=== PATIENT | female | born 2000 | race Native Hawaiian/Other Pacific Islander ===

== ENCOUNTER 2022-05-26 13:17 | Emergency (ER) | payer BC, SELFPAY ==
[2022-05-26 13:46] VITALS: BP 91/60; PULSE 55; RESP 14; TEMP 37; O2SAT 98; BMI 20.6
--- NOTE | 2022-05-26 15:59 | ED.EYEPROB ---
HPI - Eye Problem General Time Seen by Provider: 16:10 Date Seen: 05/26/22 Chief complaint: Eye Problems Stated complaint: Numb right eye/face Time Seen by Provider: 05/26/22 15:50 History of Present Illness HPI Narrative: 21-year-old female presents with pain swelling of her right eyelid started about 3 days ago. He was more concerned this morning could she had more swelling of her right eyelid she has not had any injury that she recalls is. She is not aware of any insect bite. And any change in her vision. No double is a little discomfort when she moves her eye his eye problems. She does wear glasses but not contacts. Right eye vision is a little worse than her left. She has not had a fever, cold, cough. Related Data Allergies Allergy/AdvReac Type Severity Reaction Status Date / Time No Known Drug Allergies Allergy Verified 05/26/22 13:52 Review of Systems Narrative: No recent illness Exam Narrative: Exam Narrative: Right eye 20/40 without correction and 20 30 with glasses. Left eye 20/25 and without glasses. Lids, conjunctiva are examined without evidence of trauma. Eyelids are examined without obvious asymmetry, swelling, redness. No conjunctival injection. Pupils are equal round and reactive to light. Extraocular movements are full. Visual barnett are intact. Palpation over her orbital rims with minimal tenderness on the right superior orbital rim. I do not palpate any subcutaneous mass or swelling. Slit lamp examination is done. No foreign body is identified in the cornea are underneath her eyelid. Anterior chambers normal Const: Vital Signs, click to edit/add: Vital Signs - 24 hr 05/26/22 13:46 Temperature 98.6 F Pulse Rate [Pulse Oximeter] 55 L Respiratory Rate 14 Blood Pressure [Ri ght Upper Arm] 91/60 Pulse Oximetry 98 Oxygen Delivery Me thod Room Air Documenting provider has reviewed patient's vital signs: yes Course Vital Signs Vital signs: Initial Vital Signs Temperature 98.6 F 05/26/22 13:46 Temperature Source Temporal Artery Scan 05/26/22 13:46 Pulse Rate 55 L 05/26/22 13:46 Pulse Rhythm 05/26/22 13:46 Respiratory Rate 14 05/26/22 13:46 Blood Pressure 91/60 05/26/22 13:46 Blood Pressure Mean 70 05/26/22 13:46 Blood Pressure Position Sitting 05/26/22 13:46 Pulse Oximetry 98 05/26/22 13:46 Oxygen Delivery Method 05/26/22 13:46 Vital Signs Temperature 98.6 F 05/26/22 13:46 Pulse Rate 55 L 05/26/22 13:46 Respiratory Rate 14 05/26/22 13:46 Blood Pressure 91/60 05/26/22 13:46 Pulse Oximetry 98 05/26/22 13:46 Oxygen Delivery Method 05/26/22 13:46 Temperature 98.6 F 05/26/22 13:46 Pulse Rate 55 L 05/26/22 13:46 Respiratory Rate 14 05/26/22 13:46 Blood Pressure 91/60 05/26/22 13:46 Pulse Oximetry 98 05/26/22 13:46 Oxygen Delivery Method 05/26/22 13:46 MDM - Eye Problem MDM Narrative Medical decision making narrative: Right eye pain with extraocular movements and history of right upper lip swelling and mild tenderness on palpation. Exam is otherwise normal. With benign examination the diagnosis is unclear. Patient is already improving. Recommend eye doctor appointment tomorrow if symptoms are not completely resolved. Diagnostic considerations include occult trauma, insect bite, glaucoma. Discharge Plan Discharge Clinical Impression: Pain and swelling of eyelid Activity Level: No Restrictions Activity Detail: See your eye doctor, [facility], tomorrow if your eye is not back to normal. Stand Alone Forms: [employer] [facility] Info Instructions
== END 2022-05-26 16:48 | disposition home or self-care (01) ==
LOC: ED 16:22
PROVIDERS: Emergency Provider Family Medicine
DX: H57.11 Ocular pain, right eye (principal)
CPT/HCPCS: 99282; 99283

== ENCOUNTER 2023-01-05 10:01 | Emergency (ER) | payer BC, SELFPAY ==
[2023-01-05 10:08] VITALS: BP 103/65; PULSE 72; RESP 18; TEMP 36.5; O2SAT 97; BMI 19.4
--- NOTE | 2023-01-05 10:23 | ED.GENADULT ---
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 She says initially she had some sneezing and runny nose, now has some sinus congestion which is mild and facial pain. No fevers. She has not taken any medications. No sore throat or cough. No dental pain. No erythema or swelling. She does not smoke or vape, denies any use. Related Data Allergies Allergy/AdvReac Type Severity Reaction Status Date / Time No Known Drug Allergies Allergy Verified 01/05/23 10:08 Review of Systems Status of ROS: Reports: 6 or more systems reviewed and unremarkable except as noted in History and below [facility] Social History Smoking Status: Never smoker Do you use any of these nicotine containing products: None Second hand tobacco smoke exposure: No How often do you have a drink containing alcohol: never AUDIT-C Alcohol total score: 0 Non-prescribed substance use: denies use service: No Exam Narrative: Exam Narrative: Vital signs as noted above. In general, an alert, well-appearing patient. Head: Normocephalic, atraumatic. Eyes: Pupils are equal reactive. Extraocular movements are full. Conjunctivae are normal. ENT: Mucous membranes are moist. Throat is normal. Bilateral TMs are normal. Mild tenderness to percussion over her frontal and maxillary sinuses. No erythema or edema. No warmth. Neck: Supple without lymphadenopathy. Heart: Regular rate and rhythm. No murmur or rub. Lungs: Clear bilaterally. No increased work of breathing, crackles or wheezes. Neurologic: Patient is alert and oriented to person and place. Speech is fluent. Face is symmetric. Moves all extremities equally. Affect: Normal. Skin: Warm and dry. Well perfused. Const: Vital Signs, click to edit/add: Vital Signs - 24 hr 01/05/23 10:08 Temperature 97.7 F Pulse Rate [Pulse Oximeter] 72 Respiratory Rate 18 Blood Pressure [Ri ght Upper Arm] 103/65 Pulse Oximetry 97 Oxygen Delivery Me thod Room Air Documenting provider has reviewed patient's vital signs: yes Course Course Hospital Course: Overall she is nontoxic, certainly no meningeal signs, headache was gradual in onset, seems to be more facial and likely sinus related. Discussed that this is unlikely to be bacterial with only several days of symptoms. She may have a component of some seasonal allergies versus a more viral sinusitis. Would recommend supportive care right now, ibuprofen, pseudoephedrine, Zyrtec. If worsening over the next week, or fevers develop, she should be seen again. Antibiotics may be appropriate at that time. Vital Signs Vital signs: Initial Vital Signs Temperature 97.7 F 01/05/23 10:08 Temperature Source Temporal Artery Scan 01/05/23 10:08 Pulse Rate 72 01/05/23 10:08 Pulse Rhythm Regular 01/05/23 10:08 Respiratory Rate 18 01/05/23 10:08 Blood Pressure 103/65 01/05/23 10:08 Blood Pressure Mean 77 01/05/23 10:08 Blood Pressure Position Supine 01/05/23 10:08 Pulse Oximetry 97 01/05/23 10:08 Oxygen Delivery Method Room Air 01/05/23 10:08 Vital Signs Temperature 97.7 F 01/05/23 10:08 Pulse Rate 72 01/05/23 10:08 Respiratory Rate 18 01/05/23 10:08 Blood Pressure 103/65 01/05/23 10:08 Pulse Oximetry 97 01/05/23 10:08 Oxygen Delivery Method Room Air 01/05/23 10:08 Temperature 97.7 F 01/05/23 10:08 Pulse Rate 72 01/05/23 10:08 Respiratory Rate 18 01/05/23 10:08 Blood Pressure 103/65 01/05/23 10:08 Pulse Oximetry 97 01/05/23 10:08 Oxygen Delivery Method Room Air 01/05/23 10:08 Discharge Plan Discharge Clinical Impression: Sinusitis Patient Disposition: Home, Self-Care Condition: Stable Instructions: Sinusitis (ED) Additional Instructions: For now I would recommend using ibuprofen 400 mg 3 times a day as needed for pain. Pseudoephedrine will help with congestion. Zyrtec will help with any allergy related symptoms. If you are not improving over the next week to 10 days, if pain worsens, or if you develop new symptoms such as fever, you should be seen again. Antibiotics may be appropriate at that time. Follow Up/Referrals: Provider,Not a Local [Primary Care Provider] - Stand Alone Forms: [employer] Info Instructions
== END 2023-01-05 10:38 | disposition home or self-care (01) ==
LOC: ED 10:35
PROVIDERS: Emergency Provider Emergency Medicine
DX: J32.9 Chronic sinusitis, unspecified (principal)
CPT/HCPCS: 99282; 99283